=== PATIENT | female | born 1955 | race Caucasian/White ===

== ENCOUNTER 2019-05-10 20:58 | Emergency (ER) | payer OTHER ==
[~2019-05-10] VITALS: Ht 162.6 cm; Wt 59.0 kg
[2019-05-10 21:30] VITALS: BP_SYST 157
--- NOTE | 2019-05-10 21:30 | NUR ---
Pt BIB BLS from [facility] for medical clearance r/t inappropriate behavior and exposing body to others. Pt alert, responsive, confused per baseline. NAD noted at this time.
--- NOTE | 2019-05-10 21:50 | NUR ---
Dr. Thornton at bedside.
--- NOTE | 2019-05-10 22:00 | NUR ---
Pt begins to thrash about with blood draw attempt per lab. Bilat soft wrist restraints applied to obtain blood sample, then removed.
[2019-05-10 22:12] LABS: BASOPHILS # (AUTO) 0.1 K/uL (0.0-0.2); EOSINOPHILS # (AUTO) 0.3 K/uL (0.0-0.4); EOSINOPHILS % (AUTO) 3.3 % (0.0-4.0); HEMATOCRIT 39.3 % (36-48); HEMOGLOBIN 13.3 g/dL (12.0-16.0); LYMPHOCYTES # (AUTO) 1.6 K/uL (1.0-5.5); LYMPHOCYTES % (AUTO) 20.6 % (20.5-51.5); MEAN CORPUSCULAR HEMOGLOBIN 29 pg (27-31); MEAN CORPUSCULAR HGB CONC 34 % (32-36); MEAN CORPUSCULAR VOLUME 86 fL (79.0-98.0); MONOCYTES # (AUTO) 0.6 K/uL (0.0-1.0); MONOCYTES % (AUTO) 7.6 % (1.7-9.3); NEUTROPHILS # (AUTO) 5.2 K/uL (1.8-7.7); NEUTROPHILS % (AUTO) 67.5 % (40.0-70.0); PLATELET COUNT (AUTO) 213 K/uL (130-430); RED CELL DISTRIBUTION WIDTH 13.5 % (9.0-15.0); WHITE BLOOD COUNT (AUTO) 7.8 K/uL (4.8-10.8)
[2019-05-10 22:26] LABS: ANION GAP 9 (5-15); CALCIUM 9.4 mg/dL (8.4-11.0); CHLORIDE 99 mmol/L (98-107); CREATININE 1.23 mg/dL (0.55-1.30); GLUCOSE 230 mg/dL (70-99); POTASSIUM 4.4 mmol/L (3.5-5.1); SODIUM SERUM 132 mmol/L (136-145); UREA NITROGEN, BLOOD 25 mg/dL (8-21)
[2019-05-10 22:28] LABS: GFR AFRICAN AMERICAN 56 mL/min (>90)
--- NOTE | 2019-05-10 22:30 | NUR ---
Pt up ambulating about ER, confused. Pt reoriented to room. Denies c/o pain or discomfort, no needs verbalized.
[2019-05-10 22:33] LABS: ALANINE AMINOTRANSFERASE 22 U/L (12-78); ALBUMIN 3.7 g/dL (3.4-4.8); ASPARTATE AMINOTRANSFERASE 18 U/L (10-37); TOTAL BILIRUBIN 0.3 mg/dL (0.0-1.0)
[2019-05-10 22:35] LABS: ACETAMINOPHEN < 1 ug/mL (1-30); ALCOHOL, BLOOD < 3 mg/dL (<10)
--- NOTE | 2019-05-10 23:30 | NUR ---
Pt up ambulating about ER, confused. Pt reoriented to room. Denies c/o pain or discomfort, no needs verbalized.
[2019-05-11 00:30] VITALS: BP_SYST 152
--- NOTE | 2019-05-11 00:30 | NUR ---
Patient to be transferred to [facility]. Is being transferred due to higher level of care. Receiving facility has accepting physician and available space. ER physician has signed transfer form. Patient or responsible green party has agreed to transfer and signed form. Patient belongings inventoried and will be sent with patient. Copy of nursing notes, lab reports, EKG, Physicians Orders and X-rays to be sent with patient. Report called to Timo at receiving facility. Receiving physician is Dr. Alegria. Pt leaves in c/o BLS ambulance on stretcher in stable condition.
[2019-05-11 09:14] LABS: CHOLESTEROL 133 mg/dL (<200); HDL CHOLESTEROL 60 mg/dL (>55); LDL CHOLESTEROL 49 mg/dL (<100); TRIGLYCERIDES 143 mg/dL (30-150)
== END 2019-05-11 00:30 ==
LOC: SED 20:58
DX: F32.9 Major depressive disorder, single episode, unspecified (principal); E78.5 Hyperlipidemia, unspecified; I10 Essential (primary) hypertension; Z95.0 Presence of cardiac pacemaker; Z86.73 Personal history of transient ischemic attack (TIA), and cerebral infarction without residual deficits
CPT/HCPCS: 36415; 80053; 80061; 82140; 83036; 85025; 87081; 99285; G0480; G0481; G0482

== ENCOUNTER 2021-02-12 11:50 | Emergency (ER) | payer OTHER ==
[~2021-02-12] VITALS: Ht 162.6 cm; Wt 59.0 kg
[2021-02-12 11:50] VITALS: BP_SYST 144
--- NOTE | 2021-02-12 11:50 | NUR ---
Placed in room 7 . Placed on monitoring tech, blood pressure machine and pulse oximeter. To gown for exam. Side rails up. Report given to COLTON MAY.
--- NOTE | 2021-02-12 11:55 | NUR ---
PT RINKUA FROM [facility], C/O BUMP TO LEFT SIDE OF SCALP. PER FACILITY PT'S BUMP APPEARED YESTERDAY AND PT HAS BEEN PICKING AT IT. OPEN WOUND PRESENT WITH SCABBING, REDNESS AND TENDER. PT IS AOX1 WHICH IS HER BASELINE PER FACLITY, AMBULATORY WITH STEADY GAIT, V/S STABLE.
--- NOTE | 2021-02-12 12:00 | NUR ---
PT ATTEMPTING TO AWOL, CONFUSED, REPEATING "I JUST WANT TO WALK", DIFFICULT TO DIRECT.
[2021-02-12] MEDS ORDERED: OLANZapine IntraMuscular 10 MG VIAL (FOR I.M. INJECTION ONLY) IM ONE (12:15)
[2021-02-12] MEDS ORDERED: CLIN300C12 PO (13:48)
[2021-02-12] MEDS ORDERED: GRIS500T7 PO (13:48)
--- NOTE | 2021-02-12 14:28 | NUR ---
REPORT GIVEN TO JEFF BOLANOS FOR RETURN TO [facility].
--- NOTE | 2021-02-12 16:00 | NUR ---
PT RESTING IN GURNEY, AWAKE, ALERT, V/S STABLE
--- NOTE | 2021-02-12 17:04 | NUR ---
1ST RESCUE HERE TO TRANSPORT PT TO [facility]
[2021-02-12 17:07] VITALS: BP_SYST 144
--- NOTE | 2021-02-12 17:08 | NUR ---
Patient given written and verbal discharge instructions and verbalizes understanding. ER MD discussed with patient the results and treatment provided. Patient in stable condition. ID arm band removed. Rx of CLINDAMYCIN GRISEOFULVIN given. Patient educated on pain management and to follow up with PMD. Pain Scale 0/10. Opportunity for questions provided and answered. Medication side effect fact sheet provided.
== END 2021-02-12 17:07 | disposition home or self-care (01) ==
LOC: SED 11:50
DX: L98.8 Other specified disorders of the skin and subcutaneous tissue (principal); F03.90 Unspecified dementia, unspecified severity, without behavioral disturbance, psychotic disturbance, mood disturbance, and anxiety; I10 Essential (primary) hypertension; Z79.899 Other long term (current) drug therapy
CPT/HCPCS: 87101; 96372; 99283; J3490

== ENCOUNTER 2022-08-07 18:48 | Inpatient (IN) | payer OTHER ==
[~2022-08-07] VITALS: Ht 162.6 cm; Wt 56.7 kg
[~2022-08-07 18:48] MED LIST: ACET325T53 PO; ASCO500T20 PO; CLIN-142 PO; CRAN450T9 PO; DOCU-144 PO; DONE10TA44 PO; GLIP10TA11 PO; GRIS500T7 PO; HYDR-4038 PO; INSU100V11 SQ; MEMA5TAB PO; METF-518 PO; MULT-1117 PO; OMEG100037 PO; SIMV-345 PO; SSNOVOLOG SUBCUT
[2022-08-07 19:16] VITALS: BP_SYST 125
[2022-08-07] MEDS ORDERED: cefTRIAXone 1 GM IVPB PREMIX 50 ML IV ONE (19:30)
[2022-08-07] MEDS ORDERED: DIPHENHYDRAMINE INJ 50 MG/ML VIAL IVP ONE (20:00)
[2022-08-07 20:17] LABS: BASOPHILS # (AUTO) 0.1 K/uL (0.0-0.2); BASOPHILS % (AUTO) 0.8 % (0.0-2.0); EOSINOPHILS # (AUTO) 0.1 K/uL (0.0-0.4); EOSINOPHILS % (AUTO) 0.7 % (0.0-4.0); HEMATOCRIT 31.8 % (36-48); HEMOGLOBIN 10.5 g/dL (12.0-16.0); LYMPHOCYTES # (AUTO) 0.8 K/uL (1.0-5.5); LYMPHOCYTES % (AUTO) 9.5 % (20.5-51.5); MEAN CORPUSCULAR HEMOGLOBIN 26 pg (27-31); MEAN CORPUSCULAR HGB CONC 33 % (32-36); MEAN CORPUSCULAR VOLUME 80 fL (79.0-98.0); MONOCYTES # (AUTO) 0.9 K/uL (0.0-1.0); MONOCYTES % (AUTO) 10.1 % (1.7-9.3); NEUTROPHILS # (AUTO) 6.8 K/uL (1.8-7.7); NEUTROPHILS % (AUTO) 78.9 % (40.0-70.0); PLATELET COUNT (AUTO) 257 K/uL (130-430); RED BLOOD CELL COUNT(AUTO) 3.97 MIL/uL (4.2-6.2); RED CELL DISTRIBUTION WIDTH 15.3 % (9.0-15.0); WHITE BLOOD COUNT (AUTO) 8.6 K/uL (4.8-10.8)
[2022-08-07 20:46] LABS: ALANINE AMINOTRANSFERASE 19 U/L (12-78); ALBUMIN 2.8 g/dL (3.4-4.8); ANION GAP 7 (5-15); ASPARTATE AMINOTRANSFERASE 9 U/L (10-37); CALCIUM 8.8 mg/dL (8.4-11.0); CHLORIDE 97 mmol/L (98-107); CREATININE 1.13 mg/dL (0.55-1.30); GFR AFRICAN AMERICAN 61 mL/min (>90); TOTAL BILIRUBIN 0.3 mg/dL (0.0-1.0); UREA NITROGEN, BLOOD 20 mg/dL (8-21)
--- NOTE | 2022-08-07 20:48 | NUR ---
Admit bed requested Patient will be admitted to care of Dr. Alegria Admitted to Tele unit. Diagnosis Cellulitis Inpatient (Yes or No) yes Observation (Yes or No) no Orientation concerns or request close to nursing station (Yes or No) yes Covid Status na On vent or bipap no Isolation requirements no Needs a sitter yes From Home (Yes or if No enter name of facility) no, [facility] Requires Dialysis (Yes or No) no Med Rec Completed (Yes of No) no
--- NOTE | 2022-08-07 20:49 | NUR ---
SUSAN Monson at bedside examining patient.
--- NOTE | 2022-08-07 20:50 | NUR ---
Pt BIBA from C/O left lower leg pain AOX1 VSS Unable to make needs known VSS Will continue to monitor
[2022-08-07 20:59] LABS: GLUCOSE 543 mg/dL (70-99)
--- NOTE | 2022-08-07 21:15 | NUR ---
Pt combactive at this time made aware
--- NOTE | 2022-08-07 21:45 | NUR ---
ADMISSION NOTE RECEIVED PT FROM ER VIA FELA, RECEIVED REPORT FROM JEFF WALLIS. Patient admitted with diagnosis of CELULLITIS. PT CONFUSED AND TRIED TO TAKE OFF IV. PT NONCOOPERATIVE, YELLING AND WANTED TO GET OUT OF THE BED. LEFT LOWER LEG IS RED, SWLLOEN AND DRAINGES PRESENT. BREATHING EVEN AND NONLABORED ON RA. SAFETY CHECKS IN PLACE. BED ALARM ON. CONTINUE TO MONITOR.
[2022-08-07] MEDS: NACL 0.9% 1,000 ML IV SCH (21:58)
[2022-08-07] MEDS ORDERED: MORPHINE 2 MG/ML INJ. SYRINGE IVP PRN (22:00)
--- NOTE | 2022-08-07 22:05 | NUR ---
Patient will be admitted to care of [facility]. Admitted to tele unit. Will go to room 112A. Belongings list completed. Complete and up to date summary report printed. SBAR report to be given at bedside with opportunity for questions.
--- NOTE | 2022-08-07 22:10 | NUR ---
HIGH ALERT NOTE: Called Dr. omalley at [phone] identified within the medical roster to verify physician authenticity. ATIVAN 1mg Q4HP FRO AGITATION, MORPHINE 1mg IVP Q4HP FOR MODERATE PAIN, MORPHINE 2mg IVP Q4HP FOR SEVERE PAIN
[2022-08-07] MEDS ORDERED: PIPERACILLIN/TAZOBACTAM 3.375 GM/VIAL (ZOSYN) IV ONE (22:42)
[2022-08-07] MEDS ORDERED: VANCOMYCIN HCL 1000 MG/VIAL IV ONE (22:42)
[2022-08-07] MEDS: LORazepam 1 MG TABLET PO PRN (22:51)
[2022-08-07] MEDS ORDERED: VANCOMYCIN HCL 1 GM/NS PREMIX 250 ML IV ONE (23:00)
[2022-08-07 23:01] VITALS: BP_SYST 147
[2022-08-07] MEDS: PIPERACILLIN/TAZO 3.375/DEX-IS 50 ML IV SCH (23:09)
[2022-08-07] MEDS: INSULIN REGULAR, HUMAN 100 UNITS/ML, 3 ML VIAL (humuLIN R) SUBCUT PRN (23:48)
[2022-08-08] VITALS: BP_SYST 147
--- NOTE | 2022-08-08 00:09 | NUR ---
BLOOD GLUCOSE PT'S ACCU CHECK 451. INFORMED TO DR. QUIJANO AND ORDERED ADDITIONAL 4 UNIT HUMULINR ONCE SBCUT.
--- NOTE | 2022-08-08 00:11 | NUR ---
HIGH ALERT NOTE: Called Dr. QUIJANO back at [phone] identified within the medical roster to verify physician authenticity. HUMULINR 4 UNITS SUBCUT ONCE.
[2022-08-08] MEDS ORDERED: INSULIN REGULAR, HUMAN 10 UNITS/0.1 ML, 3 ML VIAL SUBCUT ONE (00:15)
--- NOTE | 2022-08-08 00:53 | NUR ---
CONSULTATION PAGED/CALLED Reason for Consultation: CELLULITIS Person Who was Notified: FILI Consulting Physician: Geovanna PLATA Simulation Engineer Specialty: Ordering Physician: SAMM
--- NOTE | 2022-08-08 03:09 | NUR ---
ROUNDING NOTE PT LYING IN BED AND EYES OPEN. CALM AND QUIET. BREATHING EVEN AND NONLABORED. PT INCONTINENT. PROVIDED PERINEAL CARE AND CHANGED WHOLE LINENS. PT COOPERATIVE. BED ALARM ON SAFETY CHECKS IN PLACE. CONTINUE TO MONITOR
[2022-08-08 05:15] LABS: BASOPHILS # (AUTO) 0.1 K/uL (0.0-0.2); BASOPHILS % (AUTO) 0.8 % (0.0-2.0); EOSINOPHILS # (AUTO) 0.1 K/uL (0.0-0.4); EOSINOPHILS % (AUTO) 1.5 % (0.0-4.0); HEMATOCRIT 32.6 % (36-48); HEMOGLOBIN 10.8 g/dL (12.0-16.0); LYMPHOCYTES # (AUTO) 0.7 K/uL (1.0-5.5); LYMPHOCYTES % (AUTO) 9.9 % (20.5-51.5); MEAN CORPUSCULAR HEMOGLOBIN 26 pg (27-31); MEAN CORPUSCULAR HGB CONC 33 % (32-36); MEAN CORPUSCULAR VOLUME 79 fL (79.0-98.0); MONOCYTES # (AUTO) 0.8 K/uL (0.0-1.0); MONOCYTES % (AUTO) 11.6 % (1.7-9.3); NEUTROPHILS # (AUTO) 5.5 K/uL (1.8-7.7); NEUTROPHILS % (AUTO) 76.2 % (40.0-70.0); PLATELET COUNT (AUTO) 278 K/uL (130-430); RED BLOOD CELL COUNT(AUTO) 4.14 MIL/uL (4.2-6.2); RED CELL DISTRIBUTION WIDTH 15.1 % (9.0-15.0); WHITE BLOOD COUNT (AUTO) 7.2 K/uL (4.8-10.8)
[2022-08-08] MEDS: PIPERACILLIN/TAZO 3.375/DEX-IS 50 ML IV SCH ×3 (05:16→22:35)
[2022-08-08 05:38] LABS: CHOLESTEROL 131 mg/dL (<200); HDL CHOLESTEROL 73 mg/dL (>55); TRIGLYCERIDES 87 mg/dL (30-150)
[2022-08-08 05:47] LABS: ALBUMIN 2.8 g/dL (3.4-4.8); CALCIUM 8.8 mg/dL (8.4-11.0); CREATININE 0.81 mg/dL (0.55-1.30); TOTAL BILIRUBIN 0.4 mg/dL (0.0-1.0)
--- NOTE | 2022-08-08 06:06 | NUR ---
ACCU CHECK 0600 BLOOD GLUCOSE 124. NO INSULIN GIVEN. PT CALM AND QUIET. SAFETY CHECKS IN PLACE. CALL LIGHT IN REACH. CONTINUE TO MONITOR
--- NOTE | 2022-08-08 06:47 | NUR ---
CLOSING NOTE PT LYING IN BED AND EYES CLOSED. BREATHING EVEN AND NONLABORED. NO S/S OF ACUTE DISTRESS OR PAIN. LEFT LOWER LEG WOUND COVERED WITH GAUZE. RESTRAINTS ON BOTH WRISTS. NO CIRCULATION PROBLEM FOUND. SAFETY CHECKS IN PLACE. CALL LIGHT IN REACH. ENDORSED TO DAY SHIFT NURSE
[2022-08-08 08:00] VITALS: BP_SYST 133
[2022-08-08] MEDS: LORazepam 1 MG TABLET PO PRN ×2 (09:02→22:35)
[2022-08-08] MEDS: VANCOMYCIN HCL 500 MG in NS 100 ML IV SCH ×2 (09:02→20:36)
[2022-08-08] MEDS: MORPHINE 2 MG/ML INJ. SYRINGE IVP PRN ×2 (09:03→20:35)
[2022-08-08] MEDS: NACL 0.9% 1,000 ML IV SCH (09:04)
[2022-08-08] MEDS: INSULIN REGULAR, HUMAN 100 UNITS/ML, 3 ML VIAL (humuLIN R) SUBCUT PRN ×2 (12:32→17:57)
[2022-08-08 12:33] VITALS: BP_SYST 117
[2022-08-08 16:25] VITALS: BP_SYST 121
[2022-08-08 20:00] VITALS: BP_SYST 131
[2022-08-09] VITALS: BP_SYST 136
[2022-08-09 04:00] VITALS: BP_SYST 138
[2022-08-09] MEDS: PIPERACILLIN/TAZO 3.375/DEX-IS 50 ML IV SCH ×3 (05:46→23:53)
[2022-08-09] MEDS: INSULIN REGULAR, HUMAN 100 UNITS/ML, 3 ML VIAL (humuLIN R) SUBCUT PRN ×2 (05:54→12:03)
[2022-08-09 08:00] VITALS: BP_SYST 133
[2022-08-09 11:13] VITALS: BP_SYST 127
--- NOTE | 2022-08-09 14:45 | NUR ---
WOUND EVALUATION: Wound Consult received from Dr. Alegria. Thank you, Dr. Alegria, for the consult. Patient received in a Negar Bed with an IsoFlex JABARI mattress, awake, alert, confused. Patient is unable to turn independently. Jeffery Score is a 15. Past Medical History: CAD, HTN, Pacemaker, Hyperlipidemia, Major Depressive Disorder, Dementia, PVD, Schizophrenia. Recent Labs: 1.2, RBC 4.14, hemoglobin 10.8, hematocrit 32.6, BUN 16, creatinine 0.81, GFR 75, AST 8, albumin 2.8. Intrinsic factors that delay wound healing: CAD, PVD, Hypoalbuminemia. Extrinsic factors that delay wound healing: Decreased mobility. Wound Assessment: 1. Left Anterior Monahan (proximal aspect of distal third): Wound, possible abscess, present on admission. Wound bed has 90% dark red tissue, 10% yellow slough. No odor, small dark red drainage. Periwound intact. Extremity has calor, and moderate nonpitting edema present superior to and inferior to wound site. Wound measures 1.1 cm x 1.2 cm x 1.1 cm. Recommend: Cleanse wound with normal saline. Place moisture barrier cream onto zeina-wound. Cover with foam dressing. Perform wound care daily, and as needed for dressing soiling or dislodgement. Also recommend: Reposition patient every 2 hours with pillow support and off-load pressure areas with pillows for pressure re-distribution. Offload, elevate and float bilateral heels with pillows. Perform skin care and monitor skin integrity Q shift. Use moisture barrier cream on buttocks and other moisture susceptible areas QID and as needed for soiling.
[2022-08-09] MEDS: VANCOMYCIN HCL 500 MG in NS 100 ML IV SCH ×2 (14:51→21:45)
[2022-08-09] MEDS: NACL 0.9% 1,000 ML IV SCH (14:52)
--- NOTE | 2022-08-09 15:18 | NUR ---
Machine Staker re: social services analyst referral Ongoing telephone calls and an email sent to the brother, Abisai Maciel. The brother requested I email him what I needed from him. I advised the brother via email that I was trying to complete a social service assessment, but that he could not eamil back because of the firewalls that our [employer] has in place. I advised the brother to call me back at his earliest convenience. Abisai Maciel: [email or web address]
[2022-08-09 15:49] VITALS: BP_SYST 121
--- NOTE | 2022-08-09 18:09 | NUR ---
Patient maintained good composure throughout the shift when on restraints. When restraints were removed, patient consistently tried to get of bed. Otherwise, patient stable with no major issues at this time.
--- NOTE | 2022-08-09 19:30 | NUR ---
PT LYING IN BED AND EYES OPEN. BREATHING EVEN AND NONLABORED ON RA. NO S/S ACUTE DISTRESS OR PAIN. VSS. IVF INFUSINNG ORDERED. cALL LIGHT IN REACH, SIDE RAILS UP. WILL CONTINUE TO MONITOR
[2022-08-09 20:00] VITALS: BP_SYST 140
[2022-08-10 00:48] VITALS: BP_SYST 132
[2022-08-10 04:00] VITALS: BP_SYST 139
[2022-08-10] MEDS: PIPERACILLIN/TAZO 3.375/DEX-IS 50 ML IV SCH ×3 (06:05→22:52)
[2022-08-10] MEDS: INSULIN REGULAR, HUMAN 100 UNITS/ML, 3 ML VIAL (humuLIN R) SUBCUT PRN ×4 (07:01→23:36)
--- NOTE | 2022-08-10 07:52 | NUR ---
INITIAL ROUNDS Received pt awake, confused, restless and angry-yelled at this radio news writer to not touch her while doing the physical assessment even though this radio news writer explained to the patient what I was doing prior to assessing the patient. Pt on bilat soft-wrist restraints for safety. IVF infusing well at ordered rate with no s/s infiltration to site. Note dressing to LLE clean, dry and intact. Pt repositioned will pillow support and bilat heels off-loaded for skin care and safety. Side railsupx3, bed alarm on and room close to nursing station for safety.
[2022-08-10 08:02] VITALS: BP_SYST 130
[2022-08-10] MEDS: VANCOMYCIN HCL 500 MG in NS 100 ML IV SCH ×2 (09:48→21:17)
--- NOTE | 2022-08-10 11:05 | NUR ---
Dietitian Recommendations * 2 gm Na diet w/ Ensure BID, Carlos BID (supplements yield an additional 880 kcal/day, 45 gm protein/day) LP, MS, RD Please refer to Nutrition Assessment for details. Addendum: 08/10/22 at [address] Amended: Links added.
[2022-08-10] MEDS: BALSAM PERU/CASTOR OIL 56.7 GM OINT...G. TP SCH (11:12)
--- NOTE | 2022-08-10 11:29 | NUR ---
WOUND CARE Dressing to left wetzel removed gently, area cleansed with normal saline, Venelex applied to wound bed,moisture barrier cream applied to reddened periwound,covered with a foam dressing and secured in place with a Kerlex dressing. Wound bed was 90% pink tissue, 10% white tissue, moderate amount of drainage noted on the previous dressing,no odor, periwound pink and edematous and tender to touch. Wound bed measures 0.8 cm x 1.5 cm x 0.5 cm. LLE elevated on a pillow. Pt tolerated well,declined any pain medication.
[2022-08-10 12:04] VITALS: BP_SYST 124
--- NOTE | 2022-08-10 16:00 | NUR ---
CM: referral package faxed to [facility]. DC barriers: pt was on restraints, nursing tried to release but needed to put back on dt confusion and pt pulling iv line.
[2022-08-10 16:57] VITALS: BP_SYST 129
[2022-08-10] MEDS: NACL 0.9% 1,000 ML IV SCH (17:19)
--- NOTE | 2022-08-10 18:18 | NUR ---
PULLED OUT IV/YELLING AT STAFF/TRIED TO HIT STAFF Per request of relay checker at 1725, pt' restraints removed for dinner so pt could feed herself and to see if we can D/C the restraints. Came in to check on pt at 1750, she was feeding herself but then noted that she pulled out her IV to her RAC. Will attempting to place new IV pt starting yelling and trying to hit staff. New IV placed to left hand 22g, covered with Kerlex wrap and IVF now infusing well at ordered rate. Pt remains on bilat wrist restraints, rn relief charge aware.
--- NOTE | 2022-08-10 19:02 | NUR ---
CLOSING NOTE Pt resting in bed with no s/s resp distress,no c/o pain or discomfort. IVF infusing well to left hand at ordered rate with no s/s infiltration to site. Pt remains on bilat soft wrist restraints for safety. All other precautions remain in place.
--- NOTE | 2022-08-10 19:30 | NUR ---
OPENING Received patient resting in bed, unlabored breathing on room air. Bilateral wrist restraints in place as ordered. Safety precautions in place.
[2022-08-10 20:15] VITALS: BP_SYST 141
--- NOTE | 2022-08-10 21:45 | NUR ---
Dr. Christine at bedside making rounds.
--- NOTE | 2022-08-10 23:40 | NUR ---
NOTES Patient resting in bed, no s/s distress noted. Incontinent of urine and stool. Gown and linens changed, turned and repositioned. Patient was cooperative with Accucheck but then grabbed staff's fingers and said "I'll kill you" and attempted to pull at IV. Safety precautions in place.
[2022-08-11 00:55] VITALS: BP_SYST 144
[2022-08-11] MEDS: NACL 0.9% 1,000 ML IV SCH (05:00)
[2022-08-11] MEDS: PIPERACILLIN/TAZO 3.375/DEX-IS 50 ML IV SCH ×3 (06:17→22:26)
[2022-08-11] MEDS: INSULIN REGULAR, HUMAN 100 UNITS/ML, 3 ML VIAL (humuLIN R) SUBCUT PRN ×3 (06:23→17:59)
--- NOTE | 2022-08-11 07:04 | NUR ---
CLOSING Patient resting in bed, no s/s distress noted. IV fluids infusing as ordered. Bilateral wrist restraints in place. Safety checks done. Dressing to left lower extremity clean/dry/intact.
[2022-08-11 08:24] VITALS: BP_SYST 140
[2022-08-11] MEDS: VANCOMYCIN HCL 500 MG in NS 100 ML IV SCH ×2 (09:09→21:16)
[2022-08-11 09:10] VITALS: BP_SYST 140
--- NOTE | 2022-08-11 12:34 | NUR ---
CM: Per JEFF Johnson , will attempt to release the restraints again.
[2022-08-11 12:51] VITALS: BP_SYST 147
--- NOTE | 2022-08-11 13:25 | NUR ---
RESTRAINTS REMOVED FOR LUNCH Restraints removed for lunch so pt can feed herself and to see if pt won't pull anything out.Pt ate,then rested quietly with frequent monitoring by nursing. By 1320 pt had pulled out her IV.Pty placed back into restraints. Will place new IV once pt calms down-pt upset and yelling at nurse to leave her alone. clutch operator informed.
--- NOTE | 2022-08-11 16:00 | NUR ---
WOUND CARE Pt removed dressing with her other foot. Area cleansed with normal saline, Venelex ointment applied to wound bed, moisture barrier cream applied to periwound area that is red,covered with a foam dressing and secured in place with a Kerlex dressing. Wound 100% dark red tissue, noted white drainage when periwound area pressed slightly,periwound red and swollen. Wound bed measures 0.8 cm 1.5 cm x 0.5 cm. Pt yelled and tried to kick away LLE the whole time during dressing change.
[2022-08-11 16:05] VITALS: BP_SYST 140
[2022-08-11] MEDS: BALSAM PERU/CASTOR OIL 56.7 GM OINT...G. TP SCH (17:53)
--- NOTE | 2022-08-11 18:45 | NUR ---
CLOSING Patient resting in bed, no s/s distress noted. Bilateral wrist restraints in place. Safety checks done. Dressing to left lower extremity clean/dry/intact.
--- NOTE | 2022-08-11 20:00 | NUR ---
OPENING Patient resting in bed, no s/s distress noted. IV fluids infusing as ordered. Bilateral wrist restraints in place, circulation intact, no sign of injury. Safety precautions in place.
[2022-08-11 20:02] VITALS: BP_SYST 138
[2022-08-11] MEDS: LORazepam 1 MG TABLET PO PRN (22:37)
--- NOTE | 2022-08-11 23:00 | NUR ---
WOUND CARE Patient kicked off wound dressing twice. Dark red drainage noted. Gown and linens changed. Wound care done and dressing replaced. Patient is restless and tearful, swinging legs at staff, yelling, and attempting to grab staff member's fingers. PRN Ativan PO given.
[2022-08-12] VITALS: BP_SYST 144
[2022-08-12] MEDS: NACL 0.9% 1,000 ML IV SCH ×2 (00:27→21:00)
[2022-08-12] MEDS: INSULIN REGULAR, HUMAN 100 UNITS/ML, 3 ML VIAL (humuLIN R) SUBCUT PRN ×3 (00:28→17:15)
--- NOTE | 2022-08-12 03:00 | NUR ---
Dr. Christine saw patient at bedside.
[2022-08-12] MEDS: PIPERACILLIN/TAZO 3.375/DEX-IS 50 ML IV SCH ×2 (06:26→13:37)
--- NOTE | 2022-08-12 07:30 | NUR ---
OPENING NOTE; PT RESTING IN BED WITH BILATERAL SOFT RESTRAINTS ON. NO S/S ACUTE DISTRESS OR PAIN NOTED. IVF RUNNING ORDERED. IV SITE REMAIN INTACT AND PATENT. NO IV INFILTRATION OR INFECTION NOTED. BED IS LOCKED AND AT LOW POSITION. BED ALARM ON. CALL LIGHT WITHIN REACH. WILL CONT TO MONITOR FOR ANY CHANGES
--- NOTE | 2022-08-12 07:35 | NUR ---
CLOSING Patient resting in bed, no s/s distress noted. IV fluids infusing. Patient had bowel movement this morning, gown and linens changed. Barrier cream applied to redness to buttocks/sacrum. Wound dressing to left lower leg clean/dry/intact. Bilateral wrist restraints in place. Endorsed to oncoming nurse.
[2022-08-12] MEDS: VANCOMYCIN HCL 500 MG in NS 100 ML IV SCH (09:08)
[2022-08-12] MEDS: BALSAM PERU/CASTOR OIL 56.7 GM OINT...G. TP SCH (09:12)
--- NOTE | 2022-08-12 09:24 | NUR ---
MRS QUINONEZ HAS A BED READY AT [facility] WHEN SHE IS DISCHARGED ROOM 118B
[2022-08-12 11:15] VITALS: BP_SYST 121
--- NOTE | 2022-08-12 11:15 | NUR ---
WOUND CARE PROVIDED, PT TOLERATED WELL.
--- NOTE | 2022-08-12 13:45 | NUR ---
PT REQUESTED TO WALK, THIS NURSE WALKED WITH PT FOR 10 MINUTES. PT BACK TO BED, REFUSED LLE WOUND DRESSING CHANGED. PUT PATIENT BAKC ON RESTRAINTS
--- NOTE | 2022-08-12 14:30 | NUR ---
SALESFORCE ADMINISTRATOR found patient's restraints off and pt took iv out. it seems that retrains were loose enough that pt managed to take them off. sec reporting consultant walked with patient as pt wanted to walk. after walking, put pt back on bed, restraints wore securely. no active bleeding noted at this time. bed alarm on. bed is low and locked. will cont to monitor for any changes
[2022-08-12] MEDS: LORazepam 1 MG TABLET PO PRN ×2 (15:25→21:10)
[2022-08-12 16:30] VITALS: BP_SYST 125
--- NOTE | 2022-08-12 17:00 | NUR ---
INITIATED NEW PIC TO LFA 22G BY ASEPTIC TECHNIQUE. FLUSHED WITH 10CC NS, GOOD BLOOD RETURN NOTED. PATIENT DENIES ANY PAIN OR DISCOMFORT TO THE SITE. SECURED WITH TRANSPARENT DRESSING. IVF RUNNING ORDERED. WILL CONT TO MONITOR FOR ANY CHANGES.
--- NOTE | 2022-08-12 18:16 | NUR ---
LEFT VOICE MESSAGE TO FAMILY (MABEL) TO OBTAIN CONSENT FOR I&D PROCEDURE
--- NOTE | 2022-08-12 19:00 | NUR ---
CLOSING NOTE; PT RESTING IN BED WITH BILATERAL SOFT RESTRAINTS ON. NO S/S ACUTE DISTRESS OR PAIN NOTED. IVF RUNNING ORDERED. IV SITE REMAIN INTACT AND PATENT. NO IV INFILTRATION OR INFECTION NOTED. BED IS LOCKED AND AT LOW POSITION. BED ALARM ON. CALL LIGHT WITHIN REACH. WILL CONT TO MONITOR FOR ANY CHANGES. WILL ENDORSE CARE TO RESIDENTIAL SOLAR SALES CONSULTANT NURSE.
[2022-08-12 20:00] VITALS: BP_SYST 126
--- NOTE | 2022-08-12 20:00 | NUR ---
OPENING Patient in bed, no s/s distress noted. IV fluids infusing. Bilateral wrist restraints in place. Call light in reach, bed low and locked.
[2022-08-12] MEDS ORDERED: cefTRIAXone 1 GM IVPB PREMIX 50 ML IV ONE (21:35)
[2022-08-12] MEDS: cefTRIAXone 1 GM in D5W 50 ML IV SCH (22:32)
--- NOTE | 2022-08-12 23:30 | NUR ---
NOTES Bed alarm going off. Entered room and found patient with restraints off and with IV removed on bedside table. Patient attempting to get out of bed, yelling that she needed to go to the bathroom. Patient also removed wound dressing. Wound with red drainage dripping down leg. Dressing replaced, and patient ambulated to bathroom with assist. Patient then back to bed with restraints in place, bed alarm on, call light in reach.
[2022-08-13] MEDS: INSULIN REGULAR, HUMAN 100 UNITS/ML, 3 ML VIAL (humuLIN R) SUBCUT PRN ×4 (00:07→17:07)
[2022-08-13 00:52] VITALS: BP_SYST 127
--- NOTE | 2022-08-13 05:23 | NUR ---
ROUNDS Patient asleep in bed, no s/s distress noted. NPO after midnight for possible I&D tomorrow. Voice messages to family for consent have been left, awaiting callback. IV fluids infusing to new 22G to right forearm. Safety precautions in place.
[2022-08-13 06:33] LABS: BASOPHILS # (AUTO) 0.1 K/uL (0.0-0.2); BASOPHILS % (AUTO) 1.4 % (0.0-2.0); EOSINOPHILS # (AUTO) 0.2 K/uL (0.0-0.4); EOSINOPHILS % (AUTO) 2.5 % (0.0-4.0); HEMATOCRIT 35.1 % (36-48); HEMOGLOBIN 11.6 g/dL (12.0-16.0); LYMPHOCYTES # (AUTO) 1.4 K/uL (1.0-5.5); LYMPHOCYTES % (AUTO) 20.2 % (20.5-51.5); MEAN CORPUSCULAR HEMOGLOBIN 26 pg (27-31); MEAN CORPUSCULAR HGB CONC 33 % (32-36); MEAN CORPUSCULAR VOLUME 79 fL (79.0-98.0); MONOCYTES # (AUTO) 0.6 K/uL (0.0-1.0); MONOCYTES % (AUTO) 8.4 % (1.7-9.3); NEUTROPHILS # (AUTO) 4.6 K/uL (1.8-7.7); NEUTROPHILS % (AUTO) 67.5 % (40.0-70.0); PLATELET COUNT (AUTO) 353 K/uL (130-430); RED BLOOD CELL COUNT(AUTO) 4.46 MIL/uL (4.2-6.2); RED CELL DISTRIBUTION WIDTH 15.1 % (9.0-15.0); WHITE BLOOD COUNT (AUTO) 6.8 K/uL (4.8-10.8)
[2022-08-13 06:45] LABS: PROTHROMBIN TIME 10.6 SECS (9.5-12.5)
--- NOTE | 2022-08-13 06:51 | NUR ---
CLOSING Patient sleeping in bed, no s/s distress noted. Wound dressing changed this morning. Bilateral wrist restraints in place. Safety checks done. Blood sugar 233 this morning, sliding scale insulin held because patient is NPO. No callback from family regarding procedure. Will endorse to AM nurse for continuity of care.
[2022-08-13 06:52] LABS: CALCIUM 8.9 mg/dL (8.4-11.0); CREATININE 0.97 mg/dL (0.55-1.30)
[2022-08-13 08:00] VITALS: BP_SYST 136
[2022-08-13] MEDS: BALSAM PERU/CASTOR OIL 56.7 GM OINT...G. TP SCH (09:00)
--- NOTE | 2022-08-13 11:47 | NUR ---
called and left messages for both contacts Holger and Maddi Maciel regarding consent for I+D requested return call rafiq
--- NOTE | 2022-08-13 12:07 | NUR ---
WHEN PATIENT IS READY SHE WILL BE TRANSFERD TO [facility] ROOM 188B
[2022-08-13 12:13] VITALS: BP_SYST 151
--- NOTE | 2022-08-13 13:40 | NUR ---
Spoke w/ RN at [facility]. They will take the patient back at their facility when she is medically stable. They will consider taking the patient back with restraints if she needs IV ABX when she returns to the facility.
[2022-08-13] MEDS ORDERED: ceFAZolin SODIUM 1 GM VIAL ONE (15:05)
[2022-08-13] MEDS ORDERED: PROPOFOL 200MG/ 20ML VIAL (DIPRIVAN) IV ONE (15:05)
[2022-08-13] MEDS ORDERED: NS IRRIG SOLN 1000 ML IR ONE (15:05)
[2022-08-13] MEDS ORDERED: LIDOCAINE 2%, 20 ML MDV ONE (15:05)
[2022-08-13] MEDS ORDERED: NS 1000 ML IV.SOLN IV ONE (15:05)
[2022-08-13] MEDS ORDERED: WATER FOR IRRIGATION,STERILE 1,000 ML IRRIG.SOLN IR ONE (15:05)
[2022-08-13] MEDS ORDERED: METOCLOPRAMIDE HCL 10 MG/2 ML VIAL IVP PRN (15:45)
[2022-08-13] MEDS ORDERED: ONDANSETRON HCL 4 MG/2 ML VIAL IVP PRN (15:45)
[2022-08-13] MEDS ORDERED: fentaNYL CITRATE/PF 100 MCG/2 ML AMP IVP PRN ×2 (15:45)
[2022-08-13] MEDS: NACL 0.9% 1,000 ML IV SCH (17:05)
--- NOTE | 2022-08-13 17:08 | NUR ---
assume of care Bedside report received by JEFF Ivy. Patient is aox1. resting. Patient is confused, begins to yell occasionally. No ss of distress noted. Breathing is even and nonlabored, on room air. NO SOB noted No facial grimace noted. IV patent. No ss of infiltration noted. Patient does have bilateral soft wrist restraints in place. Skin around wrist is intact, no redness and or edema noted. Good circulation. cap refill less than 3 seconds. Bed is locked, alarm on, and at lowest position. Call light within reach.
[2022-08-13 18:04] VITALS: BP_SYST 147
--- NOTE | 2022-08-13 18:43 | NUR ---
CLOSING NOTES PATIENT IS RESTING, EYES CLOSED. BREATHING IS EVEN AND NONLABORED, ON ROOM AIR. NO SS OF DISTRESS NOTED. NO FACIAL GRIMACE NOTED. IV PATENT. IVF RUNNING. BILATERAL WRIST RESTRAINTS IN PLACE. NO REDNESS AND OR EDEMA. GOOD CIRCULATION. PATIENT IS STABLE. ALL NEEDS MET. BED IS LOCKED, ALARM ON, AND AT LOWEST POSITION. CALL LIGHT WITHIN REACH.
[2022-08-13 20:00] VITALS: BP_SYST 145
--- NOTE | 2022-08-13 20:00 | NUR ---
ASSUMED CARE OF PATIENT AT THIS TIME. VSS. AFEBRILE. RESPIRATIONS EVEN AND UNLABORED. A/O X 1. MARTI. WRIST RESTRAINTS IN PLACE. IVF INFUSING WITH NO REDNESS OR IRRITATION NOTED. NO ACUTE DISTRESS NOTED. WILL CONTINUE TO MONITOR FOR SAFETY. Elana SHAW RN.
--- NOTE | 2022-08-13 20:00 | NUR ---
ASSUMED CARE OF PATIENT AT THIS TIME. A/O X 4. VSS. AFEBRILE. RESPIRATION EVEN AND UNLABORED. PATIENT ON AIRBORNE ISOLATION FOR R/O TB. HL INTACT AND PATENT WITH NO REDNESS OR IRRITATION NOTED. DENIES PAIN AT THIS TIME. NO ACUTE DISTRESS NOTED. WILL CONTINUE TO MONITOR FOR SAFETY. Elana SHAW RN.
[2022-08-13] MEDS: cefTRIAXone 1 GM in D5W 50 ML IV SCH (20:34)
[2022-08-14] MEDS: INSULIN REGULAR, HUMAN 100 UNITS/ML, 3 ML VIAL (humuLIN R) SUBCUT PRN ×4 (00:04→17:31)
[2022-08-14 00:59] VITALS: BP_SYST 140
--- NOTE | 2022-08-14 06:00 | NUR ---
SLEPT WELL THROUGHOUT THE NIGHT WITH NO ACUTE DISTRESS NOTED. REMAINS IN STABLE CONDITION. Elana SHAW RN.
--- NOTE | 2022-08-14 06:00 | NUR ---
SLEPT WELL THROUGHOUT THE NIGHT WITH NO ACUTE DISTRESS NOTED. REMAINS IN STABLE CONDITION. Elana SHAW RN.
[2022-08-14 06:06] LABS: BASOPHILS # (AUTO) 0.2 K/uL (0.0-0.2); BASOPHILS % (AUTO) 1.7 % (0.0-2.0); EOSINOPHILS # (AUTO) 0.2 K/uL (0.0-0.4); EOSINOPHILS % (AUTO) 1.8 % (0.0-4.0); HEMATOCRIT 33.7 % (36-48); HEMOGLOBIN 11.2 g/dL (12.0-16.0); LYMPHOCYTES # (AUTO) 1.2 K/uL (1.0-5.5); LYMPHOCYTES % (AUTO) 12.5 % (20.5-51.5); MEAN CORPUSCULAR HEMOGLOBIN 26 pg (27-31); MEAN CORPUSCULAR HGB CONC 33 % (32-36); MEAN CORPUSCULAR VOLUME 78 fL (79.0-98.0); MONOCYTES # (AUTO) 0.5 K/uL (0.0-1.0); MONOCYTES % (AUTO) 5.4 % (1.7-9.3); NEUTROPHILS # (AUTO) 7.3 K/uL (1.8-7.7); NEUTROPHILS % (AUTO) 78.6 % (40.0-70.0); PLATELET COUNT (AUTO) 343 K/uL (130-430); RED BLOOD CELL COUNT(AUTO) 4.31 MIL/uL (4.2-6.2); RED CELL DISTRIBUTION WIDTH 14.9 % (9.0-15.0); WHITE BLOOD COUNT (AUTO) 9.3 K/uL (4.8-10.8)
[2022-08-14 06:39] LABS: CALCIUM 8.3 mg/dL (8.4-11.0); CREATININE 0.77 mg/dL (0.55-1.30)
--- NOTE | 2022-08-14 07:30 | NUR ---
Initial note: Report received from Josey. Patient is awake but confused. Attempted to remove the IV. Bilateral wrist restraint are still on. No sign of injury at this time. Assessment is done and vital checked. No pain or discomfort at this time. Will continue patient care. Bed in the lowest position and side rails x4 up. Bed alarm is on.
[2022-08-14 08:00] VITALS: BP_SYST 149
[2022-08-14] MEDS: BALSAM PERU/CASTOR OIL 56.7 GM OINT...G. TP SCH (08:07)
--- NOTE | 2022-08-14 11:08 | NUR ---
SPOKE TO [facility] THEY WILL BE TRANSPORTING MRS QUINONEZ BACK TO [place] AT 230PM SHE WILL BE GOING TO [id number] GIVING PACKET TO THE NURSE
[2022-08-14 11:44] VITALS: BP_SYST 134
--- NOTE | 2022-08-14 12:30 | NUR ---
Note: Wound care on left lower leg is done by wet to dry dressing packing. Restraint is removed and patient tolerated well.
[2022-08-14] MEDS: NACL 0.9% 1,000 ML IV SCH (13:00)
--- NOTE | 2022-08-14 13:28 | NUR ---
Received a returned call from he brother, Alexis Maciel regarding the patient. I confirmed his plans to have the patient return ack to [facility]. I advised him that transportation is already arranged and his sister should be picked up around 2:30p. Prior to getting off of the phone, the brother inquired about the emergency contacts of the patient. I advised him that it was Maddi, whom he identified as his and him. He stated he should be the primary contact as he holds the POA and the decision making capabilities. I informed him that I will advise admitting of this so that the face sheet can be corrected. Email sent to the admitting department requesting that they swap the order of emergency contact information.
[2022-08-14 13:47] VITALS: BP_SYST 134
[2022-08-14 16:35] VITALS: BP_SYST 142
--- NOTE | 2022-08-14 17:06 | NUR ---
Note: patient is resting in bed. No pain or discomfort at this time. IV heplock is removed. Pressure applied with gauze. No pain or bleeding at this time. Patient had been off the restraint. Patient tolerated well. No aggressive behavior at this time. Resting in bed. No pain or discomfort at this time. Waiting for transportation to come fiber picker patient. Telemetry is removed. [facility] Will continue to monitor until patient leaves.
--- NOTE | 2022-08-14 17:43 | NUR ---
Note: Blood sugar is 401. Gave 12 units regular insulin and called Dr. Alegria to report with no new order. [facility] is here to corn picker. No pain or discomfort. Reported to EMT and will transfer patient via gurney.
--- NOTE | 2022-08-14 18:00 | NUR ---
Discharge note: patient left floor via gurney with all of her personal belonging. No pain or discomfort at this time.
== END 2022-08-14 18:00 | DRG 854 ==
LOC: SED 18:48 → STU 20:30 → SMU 23:00 → STU 08-13 16:34
PROVIDERS: ADMIT Internal Medicine; ATTEND Internal Medicine
PROC: 0JBP0ZZ Excision of Left Lower Leg Subcutaneous Tissue and Fascia, Open Approach (ICD-10-PCS; principal; 2022-08-13 15:05)
DX: A41.9 Sepsis, unspecified organism (principal); F03.93 Unspecified dementia, unspecified severity, with mood disturbance; L03.116 Cellulitis of left lower limb; I96 Gangrene, not elsewhere classified; E78.5 Hyperlipidemia, unspecified; Z20.822 Contact with and (suspected) exposure to COVID-19; Z95.0 Presence of cardiac pacemaker; F32.9 Major depressive disorder, single episode, unspecified; F20.9 Schizophrenia, unspecified; I10 Essential (primary) hypertension; S81.802A Unspecified open wound, left lower leg, initial encounter; X58.XXXA Exposure to other specified factors, initial encounter; I25.10 Atherosclerotic heart disease of native coronary artery without angina pectoris; Y93.89 Activity, other specified; Y92.89 Other specified places as the place of occurrence of the external cause; Y99.8 Other external cause status; E11.51 Type 2 diabetes mellitus with diabetic peripheral angiopathy without gangrene
CPT/HCPCS: 36415; 71045; 73590-TC; 80048; 80053; 80061; 80202; 83605; 83880; 84484; 85025; 85610-TC; 87040; 87070-TC; 87075-TC; 87081; 87205-TC; 88304; 93005; 96365; 99285; G0378; J0690; J0696; J1200; J1815; J2001; J2270; J2543; J2704; J3370; J7030; J7060